=== PATIENT | male | born 1945 | race Caucasian/White ===

== ENCOUNTER → 2017-05-12 | Outpatient (CLI) | payer OTHER ==
--- NOTE | 2017-05-13 07:16 | PAP/PSG TECHNICIAN REPORT ---
[facility] E Commerce Developer Polysomnogram Report Study name: None Report date: 05/13/2017 Study date: 05/12/2017 Referring Physician: Dayna Hartman M.D. Name: MANGO HAMILTON Interpreting Physician: Markus Dhaliwal D.O. Date of : 1945 E Commerce Developer: Radha Clements RPSGT. Sex: Male Age: 71 Study Type: PSG Weight: 184 lbs Height: 71 years, Height 5' 9" BMI: 27.17 Medications: HYDROCHLOROTHIAZIDE 25 MG, LISINOPRIL 40 MG, MELOXICAM 15 MG, SIMVASTATIN 80 MG, NICOTINE POLACRILEX 4 MG Patient History 71 yr-old male here for a baseline study. He has a history of snoring, daytime sleepiness, and tremors. His Stafford scale is 2. The test was started on room air. ETCO2 testing was not utilized during this study. Room 1 Parameters Monitored NPSG: E1-M2, E2-M1, Fp1-M2, Fp2-M1, F3-M2, F4-M2, F4-M1, C3-M2, C4-M2, C4-M1, O1-M2, O2-M2, O2-M1, T3-M2, T4-M1, P3-M2, P4-M1, CHIN1, CHIN2, HR, EKG, Legs, PFLOW, SNOR, FLOW, CFLOW, Tidal Volume, THOR, ABDO, SpO2, PLTH, CPRESS, ETCO2 Wave, ETCO2, pH Sleep Architecture Sleep Stages Time at Lights Off 9:49:58 PM STAGES Time (min.) TST (%) Time at Lights On 5:29:28 AM Wake 208.0 -- Total Recording Time (TRT) 459.50 min. N1 91.5 36 Total Sleep Period (TSP) 355.0 min. N2 160.0 64 Total Sleep Time (TST) 251.5min. N3 0.0 0 Awake Time 208.0 min. REM 0.0 0 Wake after Sleep Onset 129.0 min. Sleep Efficiency (SE) 55 % Sleep Onset Latency (YANN) 79.0 min. Number of Stage 1 Shifts None Awakenings 26 Stage Changes 115 Number of REM periods N/A REM 0.0 0 REM Latency NONE min. NREM 251.5 100 Body Position Analysis Supine Right Left Side Prone Vertical Total Sleep Time (min.) 30.3 152.0 99.5 251.50 0.0 0.0 Total Sleep Time (%) 0% 60% 40% 100 0% N/A% Total Sleep Time REM (min.) 0.0 0.0 0.0 None 0.0 0.0 Total Sleep Time NREM (min.) 0.0 152.0 99.5 None 0.0 0.0 Intermittent Wake (min.) 30.3 104.8 73.0 None 0.0 0.0 Total Sleep Period (%) 0% None None None None None Arousals Myoclonus (PLM) * Events Count Index Events Count Index Spontaneous 59 14 Events Awake (PLMW) 208 60.0 Respiratory 3 0.7 Events Asleep w/ Arousal (PLMA) 55 13.1 PLM 55 13 Events Asleep w/o Arousal (PLMS) 410 97.8 Snoring 13 3 Total Asleep 465 110.9 Total 130 31 Total 673 88 Respiratory Analysis * CA OA MA CH H RERA Total Count 0 0 0 0 1 3 1 Index 0.0 0.0 0.0 0 0.2 1 1.0 Mean Duration 0.0 0.0 0.0 0.00 15.6 16.2 16.0 Longest Duration 0.0 0.0 0.0 0.00 0.0 17.5 17.5 Respiratory Event Summary Total Supine ~Supine Right Left Prone REM NREM Apneas Count 0 N/A 0 0 0 N/A N/A 0 Index 0.0 N/A 0 0.0 0.0 N/A N/A 0 Hypopneas (4% Desat) Count 1 N/A 1 1 0 N/A N/A 1 Index 0.2 N/A 0 0.4 0.0 N/A N/A 0.2 Apneas & All Hypopneas Count 1 N/A 1 1 0 N/A N/A 1 Index 0.2 N/A 0 0 0 N/A N/A 0.2 Respiratory Events ([employer]+All Hyp+RERA) Count 1 N/A 4 4 0 N/A N/A 1 Index 1.0 N/A 1 1.6 0.0 N/A N/A 1.0 Respiratory Related Arousal Count 3 N/A 3 3 0 N/A N/A 3 Index 0.7 N/A 1 1 0 N/A N/A 1 Snoring Analysis Supine Right Left Prone REM NREM Total Snore duration 4.7 min Snores count N/A 53 10 N/A N/A 63 63 Snore mean duration 4.4 Sec Snores index N/A 21 6 N/A N/A 15.0 15.0 TST with snoring (%) 1.9% Desaturation Event Summary: Minimum %SpO2 Event Count Mean/Min/Max Duration(sec.) Desaturation Index % Time In Bed > 90 13 25.6 / 10.0 / 47.8 1.8 93.6 86 - 90 2 14.5 / 10.0 / 19.0 4.1 6.4 81 - 85 0 N/A 0.0 0.0 76 - 80 0 N/A 0.0 0.0 71 - 75 0 N/A 0.0 0.0 66 - 70 0 N/A 0.0 0.0 61 - 65 0 N/A 0.0 0.0 56 - 60 0 N/A 0.0 0.0 51 - 55 0 N/A 0.0 0.0 < 50 0 N/A 0.0 0.0 Total REM NREM Awake <50% 0.0 min. 0.0 min. 0.0 min. 0.0 min. 51 - 60% 0.0 min. 0.0 min. 0.0 min. 0.0 min. 61 - 70% 0.0 min. 0.0 min. 0.0 min. 0.0 min. 71 - 80% 0.0 min. 0.0 min. 0.0 min. 0.0 min. 81 - 90% 29.6 min. 0.0 min. 21.4 min. 8.1 min. 91 - 100% 429.3 min. 0.0 min. 230.1 min. 199.3 min. Average 92 0 92 93 Minimum SpO2 88 N/A 89 88 Desaturation Event Index 1.8 0.0 0.2 3.8 # Desat. Events below 89% 1 N/A N/A 1 Time(%) with Saturation below 89% 0.0 0.0 0.0 0.0 Time(min.) with Saturation below 89% 0.1 0.0 0.0 0.1 Time (mins) REM (mins) NREM (mins) % of TST SpO2 Below 90% 1 N/A N1 1.1 SpO2 Below 88% 0 0 0 0 Heart Rate Analysis Min (bpm) Max (bpm) Average (bpm) Awake 49 75 57 NREM 49 68 54 REM N/A N/A N/A Overall 49 68 54 Supplemental O2 Values Minimum O2 level: None Value Start Time End Time E Commerce Developer Comments Mr. Hamilton slept in the left and right positions. No cardiac arrhythmias were noted. PLMs and arousals from leg movements were noted throughout the study. Snoring was noted and scored as a 2 on a scale of 1 through 5. (0 = no snoring, 5 = snoring loud enough to be heard through a closed door or down the hallway) He did not wake up to use the restroom during the night. Mr. Hamilton stated that he slept about the same as usual. The final report will be interpreted and signed by a sleep physician. The completed physician report will then be placed in the patient medical record. Therapy (cm H2O) 0 TIB (min.) 459.5 TST (min.) 251.5 Sleep Onset (min.) 79.0 REM Onset From Sleep (min.) NONE Sleep Efficiency % 55 Wakefulness (%) 45 Wakefulness (min.) 208.0 NREM 1 (%) 36 NREM 1 (min.) 91.5 NREM 2 (%) 64 NREM 2 (min.) 160.0 NREM 3 (%) 0 NREM 3 (min.) 0.0 REM (%) 0 REM (min.) 0.0 # Arousals 130 Arousal Index 31 # Snore 63 Snore Index 15.0 AHI 0.2 AHI Supine N/A AHI Non-Supine 0 NREM AHI 0.2 REM AHI N/A RDI 1.0 # Obstructive Apnea 0 # Central Apnea 0 # Mixed Apnea 0 # Hypopneas 1 RERAs 3 Total Respiratory Events 4 Time Below SpO2 89% (min.) 0.0 Mean NREM SpO2 (%) 92 Mean REM SpO2 (%) N/A Mean Sleep SpO2 (%) 92 Min NREM SpO2 (%) 89 Min REM SpO2 (%) N/A Position Supine (min.) 30.3 Position Non-supine (min.) 251.5 LM Index Sleep 110.9 LM Index NREM 110.9 LM Index REM N/A Mean Heart Rate (bpm) 54 Min Heart Rate (bpm) 49
--- NOTE | 2017-05-23 08:18 | Sleep Study ---
Sleep Study Report Date of Service: 05/12/2017 Sleep Study Report Clinical data: Patient is a 71-year-old male with a history of snoring, daytime sleepiness, and tremors. His Lockhart Sleepiness Scale score is 2 out of a possible 24. This was an in-lab overnight polysomnography. Sleep architecture: The total sleep period was 355.0 minutes. The total sleep time was 251.5 minutes. Sleep efficiency was severely reduced to 55 percent. Sleep onset was significantly prolonged to 79.0 minutes. Wake after sleep onset was prolonged to 129.0 minutes. There were 115 sleep stage changes. Sleep consisted of stage N1 36 percent, stage N2 64 percent, stage N3 0 percent , and stage REM 0 percent. Arousal data: Patient had a total of 130 arousals including 59 spontaneous arousals, 3 respiratory arousals, 55 PLM arousals, and 13 snoring arousals. The arousal index was elevated at 31. PLM data: Patient had a total of 465 periodic limb movements of sleep for an index severely elevated at 110.9. Were 55 arousals associated with limb movements for a PLM arousal index of 13.1. Respiratory data: Patient had only 1 respiratory event, a hypopnea. Hypopneas were scored by the 4 percent desaturation rule. The apnea-hypopnea index was normal at 0.2. The hypopnea was 15.6 seconds in length. He also had 3 RERAS. The RDI was 0.7 which is normal. Oximetry data: The average saturation was 92 percent. The minimum saturation was 88 percent. There was 0.1 minutes with saturations less than 89 percent. EKG: The underlying cardiac rhythm was normal sinus. The cardiac rate ranged from 49 to 68 beats per minute. The average heart rate was 54 beats per minute. There was no a rhythm in noted. Plug Making Operator comments: The patient slept in the left and right positions. No cardiac arrhythmias noted. PLM Z and arousals from leg movements were noted throughout the study. Snoring was noted and scored as a 2 on a scale of 1 through 5. The patient indicated that he slept about the same as usual. Impressions: 1. No evidence of obstructive sleep apnea 2. Periodic limb movement disorder Comments: The patient had very disturbed sleep. His sleep efficiency was low. His sleep architecture was markedly abnormal with no stage N3 or REM sleep. Had frequent awakenings and arousals. There was no sleep apnea. The major abnormality was that of frequent periodic limb movements with a modest number of arousals. Clinical correlation is required to determine if he has restless legs syndrome and if pharmacologic therapy is indicated. Recommendations: 1. Consideration is given to treatment of the underlying limb movement disorder. Options for therapy could include medications such as Requip or Mirapex. Treatment is deferred to his primary physician. 2. It is suggested that the patient have a serum ferritin level performed to rule out iron deficiency as an etiology for the limb movement disorder. Treatment may be indicated for a ferritin level less than 50. Copies To 1: Markus Dhaliwal DO; Dayna Hartman M.D.
== END | disposition home or self-care (01) ==
LOC: C.NEUR 20:00
PROVIDERS: ATTEND Family Medicine Adult Medicine
DX: R06.83 Snoring (principal); R25.1 Tremor, unspecified; R40.0 Somnolence